=== PATIENT | female | born 1990 | race Caucasian/White ===

== ENCOUNTER 2018-08-18 08:32 | Emergency (ER) | payer BC ==
[~2018-08-18] VITALS: Ht 170.2 cm; Wt 54.5 kg
[2018-08-18 08:38] VITALS: BP 125/80; PULSE 98; TEMP 97.3
[2018-08-18 09:25] LABS: COLLECTION METHOD CLEAN CATCH
[2018-08-18 09:28] LABS: HEMATOCRIT 37.1 % (37.0-47.0); HEMOGLOBIN 12.8 g/dl (12.5-16.0); MEAN CELL VOLUME 105 fl (80.0-100.0); MEAN CORPUSCULAR HEMOGLOBIN 36 pg (27.0-31.0); MEAN CORPUSCULAR HGB CONC 35 g/dl (33.0-37.0); MEAN PLATELET VOLUME 9.4 fl (7.4-10.4); PLATELET COUNT 98 K/mm3 (130-400); RED BLOOD COUNT 3.52 M/mm3 (4.10-5.30); REDCELL DISTRIBUTION WIDTH-CV 12.5 % (11.5-14.5)
[2018-08-18 09:41] LABS: ALBUMIN 4.7 gm/dL (3.5-5.0); BILIRUBIN,TOTAL 0.4 mg/dL (0.0-1.0); CALCIUM 8.9 mg/dL (8.4-10.2); CREATININE, serum 0.4 mg/dL (0.52-1.25); POTASSIUM 4.4 mmol/L (3.4-5.0); TOTAL PROTEIN 7.8 gm/dL (6.4-8.2)
[2018-08-18 09:52] LABS: MUCOUS Present /lpf; PH 5 (5-8); URINE APPEARANCE Hazy; URINE BACTERIA Many /hpf; URINE BILIRUBIN Negative (NEGATIVE); URINE BLOOD 1+ (NEGATIVE); URINE COLOR Yellow; URINE GLUCOSE Negative (NEGATIVE); URINE KETONE Negative (NEGATIVE); URINE LEUKOCYTE ESTERASE Negative (NEGATIVE); URINE NITRATE Positive (NEGATIVE); URINE PROTEIN(semi-quant) 1+ (NEGATIVE); URINE RBC 0-2 /hpf
[2018-08-18 09:55] LABS: PROTHROMBIN TIME 10.9 SECONDS (9.7-12.8)
[2018-08-18 10:16] LABS: BAND 9 % (0-10); BASOPHIL 1 % (0-2); LYMPHOCYTE 52 % (20.0-51.0); NEUTROPHILS 34 % (42.0-75.2); PLATELET ESTIMATE DECREASED (NORMAL)
== END 2018-08-18 09:53 | disposition left against medical advice (07) ==
LOC: COL.ER 08:32
PROVIDERS: Nurse Practitioner Primary Care
DX: S06.0X0A Concussion without loss of consciousness, initial encounter (principal); S01.01XA Laceration without foreign body of scalp, initial encounter; N39.0 Urinary tract infection, site not specified; F10.129 Alcohol abuse with intoxication, unspecified; R94.5 Abnormal results of liver function studies; F17.210 Nicotine dependence, cigarettes, uncomplicated; W18.30XA Fall on same level, unspecified, initial encounter; W22.8XXA Striking against or struck by other objects, initial encounter; Y92.009 Unspecified place in unspecified non-institutional (private) residence as the place of occurrence of the external cause; Y90.8 Blood alcohol level of 240 mg/100 ml or more

== ENCOUNTER → 2020-04-08 | Outpatient (CLI) | payer BC | LOC: COL.RAD 09:00 | DX: K76.0 Fatty (change of) liver, not elsewhere classified (principal); K76.6 Portal hypertension; F10.20 Alcohol dependence, uncomplicated | CPT/HCPCS: Q9967 ==

== ENCOUNTER → 2020-04-17 | Outpatient (CLI) | payer BC ==
[~2020-04-17] VITALS: Ht 170.2 cm; Wt 46.6 kg
[~2020-04-17] MED LIST: ALDACTONE50 MG PO; B-121000 MCG PO; CARAFATE 1GM1 G PO; D3-5050000 IU PO; FOLIC ACID 11 MG/TA1 PO; LASIX 20MG TABL20 MG PO; MAG-OX 400400 MG/TAB PO; MULTI VITAMINS1 TAB PO
[2020-04-17 10:17] VITALS: BP 97/63; PULSE 116
[2020-04-17 10:47] LABS: INR 1.6 (0.8-3.0)
== END ==
LOC: COL.RAD 10:00
PROVIDERS: Internal Medicine Gastroenterology
DX: L29.9 Pruritus, unspecified (principal); R18.8 Other ascites; R16.0 Hepatomegaly, not elsewhere classified; R74.8 Abnormal levels of other serum enzymes; R93.5 Abnormal findings on diagnostic imaging of other abdominal regions, including retroperitoneum; F10.10 Alcohol abuse, uncomplicated

== ENCOUNTER → 2020-08-17 | Outpatient (CLI) | payer BC | LOC: COL.RAD 10:00 | DX: K76.0 Fatty (change of) liver, not elsewhere classified (principal); K70.9 Alcoholic liver disease, unspecified; K80.20 Calculus of gallbladder without cholecystitis without obstruction; F10.10 Alcohol abuse, uncomplicated | CPT/HCPCS: Q9967 ==

== ENCOUNTER → 2021-03-02 | Outpatient (CLI) | payer BC | LOC: COL.RAD 07:01 | DX: K70.31 Alcoholic cirrhosis of liver with ascites (principal); F10.11 Alcohol abuse, in remission ==

== ENCOUNTER → 2022-03-02 | Outpatient (CLI) | payer BC | LOC: MC.RAD 14:08 | DX: Z12.31 Encounter for screening mammogram for malignant neoplasm of breast (principal) ==

== ENCOUNTER → 2022-06-24 | Outpatient (CLI) | payer BC | LOC: COL.RAD 09:11 | DX: K74.60 Unspecified cirrhosis of liver (principal); K82.8 Other specified diseases of gallbladder ==